=== PATIENT | female | born 1945 | race Caucasian/White ===

== ENCOUNTER 2017-02-19 09:09 | Day surgery (SDC) | payer OTHER ==
[2017-02-16 13:13] LABS: Basophils # (auto) 0 uL; Basophils % (auto) 0.5 % (0.0-2.0); CONDITION Y; Eosinophils # (auto) 0.1 uL; Eosinophils % (auto) 1.5 % (0.0-7.0); Hematocrit 40.9 % (36.0-46.0); Hemoglobin 13.6 g/dL (12.2-16.2); Lymphocytes # (auto) 1.3 uL; Lymphocytes % (auto) 17.2 % (10.0-50.0); Mean Corpuscular Hemoglobin 30.6 pg (28.0-32.0); Mean Corpuscular Hgb Conc. 33.2 g/dL (32.0-36.0); Mean Corpuscular Volume 92.2 fL (80.0-100.0); Mean Platelet Volume 9.7 fL (7.4-10.4); Monocytes # (auto) 0.6 uL; Monocytes % (auto) 7.8 % (0.0-12.0); Neutrophils # (auto) 5.5 uL; Platelet Count (auto) 266 10^3/uL (140-450); Red Cell Distribution Width 13.7 % (11.6-16.0); White Blood Cell 7.5 10^3/uL (4.4-10.8)
[2017-02-16 13:17] LABS: Partial Thromboplastin Time 27.1 sec (22.64-33.71); Prothrombin Time 10.9 sec (9.37-12.3)
[2017-02-16 13:37] LABS: Albumin 3.2 g/dL (3.4-5.0); BUN/Creatinine Ratio 22.4; Bilirubin, Total 0.6 mg/dL (0.2-1.0); Calcium 9.4 mg/dL (8.5-10.1); Potassium 4.4 mmol/L (3.5-5.1); Total Protein 8.2 g/dL (6.4-8.2)
[~2017-02-19] VITALS: Ht 157.5 cm; Wt 55.3 kg
[~2017-02-19 09:09] MED LIST: ALEN70TA55 PO; LEV50T PO; LOSA50TA6 PO; MET50T PO; OMEP20CA74 PO; OXYB15TA12 PO; SIMV10TA84 PO
[2017-02-19] MEDS ORDERED: ceFAZolin 1GM/50ML D5W 50 ML IV ONE (09:53)
[2017-02-19] MEDS ORDERED: MEPERIDINE HCL (50 MG/ML) 1 ML VIAL ONE (11:01)
[2017-02-19] MEDS ORDERED: MIDAZOLAM HCL 1MG/1ML-2 ML VIAL ONE (11:01)
[2017-02-19] MEDS ORDERED: fentaNYL CITRATE 100 MCG/2 ML VL ONE (11:01)
[2017-02-19] MEDS ORDERED: LIDOCAINE W/ EPINEPHRINE 1 % INJ 30ML ONE (11:13)
[2017-02-19] MEDS ORDERED: LIDOCAINE HCL (LOCAL ANESTH.) 0.5 % 50ML MDV IJ ONE (11:13)
[2017-02-19] MEDS ORDERED: BUPIVACAINE 0.25% INJ 50ML VIAL ONE (11:13)
[2017-02-19] MEDS ORDERED: CONJ ESTROGENS 0.625MG/GM VAG CRM 30GM PV ONE (11:15)
[2017-02-19] MEDS ORDERED: VASOPRESSIN 20 UNIT/ML ONE (11:15)
[2017-02-19] MEDS ORDERED: diphenhdrAMINE HCL 50 MG/1 ML VL ONE (12:11)
[2017-02-19] MEDS ORDERED: PROPOFOL 10 MG/ML 20 ML IV ONE (12:11)
[2017-02-19] MEDS ORDERED: DEXAMETHASONE SOD PHOS 10MG/1ML VIAL INJ ONE (12:11)
[2017-02-19] MEDS ORDERED: ceFAZolin 1GM VL ONE (12:36)
[2017-02-19] MEDS ORDERED: LABETALOL HCL 5 MG/ML 4ML SYRINGE IV PRN ×2 (13:00→14:15)
[2017-02-19] MEDS ORDERED: KETOROLAC TROMETH 30 MG/ML 1ML VIAL IV ONE (13:00)
[2017-02-19] MEDS ORDERED: MIDAZOLAM HCL 1MG/1ML-2 ML VIAL IV PRN (13:00)
[2017-02-19] MEDS ORDERED: HYDROmorphone HCL 2 MG/ML VL IV PRN ×3 (13:00→14:15)
[2017-02-19] MEDS ORDERED: ePHEDrine SULFATE 50 MG/ML AMP IV PRN (13:00)
[2017-02-19] MEDS ORDERED: ONDANSETRON HCL 4 MG/2 ML VIAL IV ONE ×2 (13:00→14:15)
[2017-02-19] MEDS ORDERED: MORPHINE SULF INJ 2 MG/ML SYRINGE 1ML IV PRN (13:00)
[2017-02-19] MEDS ORDERED: SUCCINYLCHOLINE CHLORIDE 20 MG/ML 10ML VIAL IV ONE (14:01)
[2017-02-19] MEDS ORDERED: hydrALAZINE HCL 20 MG/ML VL ONE (14:01)
[2017-02-19] MEDS ORDERED: hydrALAZINE HCL 20 MG/ML VL IV PRN (14:15)
[2017-02-19] MEDS ORDERED: METOCLOPRAMIDE HCL 5MG/ml INJ 2ml VIAL IV ONE (14:15)
[2017-02-19] MEDS ORDERED: NALOXONE HCL 0.4 MG/ML VIAL IV PRN (14:15)
[2017-02-19 15:00] VITALS: BP 126/74
== END 2017-02-19 15:10 | disposition home or self-care (01) ==
LOC: SUR 09:09
PROVIDERS: ATTEND Obstetrics & Gynecology
DX: N81.10 Cystocele, unspecified (principal); N81.6 Rectocele; N89.8 Other specified noninflammatory disorders of vagina; I11.9 Hypertensive heart disease without heart failure; E78.5 Hyperlipidemia, unspecified; M19.90 Unspecified osteoarthritis, unspecified site; E03.9 Hypothyroidism, unspecified; D64.9 Anemia, unspecified; R56.9 Unspecified convulsions; I25.10 Atherosclerotic heart disease of native coronary artery without angina pectoris
CPT/HCPCS: 36415; 57106; 57260; 57288; 80053; 85025; 85610; 85730; 88302; C1771; J0360; J0690; J1100; J1200; J2001; J2175; J2250; J2704; J3010; J3490; J0330

== ENCOUNTER 2020-07-05 09:12 | Inpatient (IN) | payer OTHER ==
[~2020-07-05] VITALS: Ht 162.6 cm; Wt 55.5 kg
[~2020-07-05 09:12] MED LIST changes: +ALEN1TAB32 PO; -ALEN70TA55 PO; +LOSA-69 PO; -LOSA50TA6 PO
[2020-07-05] MEDS ORDERED: LABETALOL HCL 5 MG/ML 4ML SYRINGE IV ONE (11:00)
[2020-07-05 11:04] LABS: Hemoglobin 14.4 g/dL (12.2-16.2); Mean Corpuscular Hgb Conc. 33.4 g/dL (32.0-36.0); Mean Corpuscular Volume 98.6 fL (80.0-100.0); Platelet Count (auto) 257 10^3/uL (140-450); Red Blood Cells 4.36 10^6/uL (4.0-5.20); White Blood Cell 5.8 10^3/uL (4.4-10.8)
[2020-07-05 11:25] LABS: Albumin 1.9 g/dL (3.4-5.0); Anion Gap 8 (5-15); Blood Urea Nitrogen 28 mg/dL (7-18); Calcium 8.9 mg/dL (8.5-10.1); Carbon Dioxide 23 mmol/L (21-32); Chloride 99 mmol/L (98-107); Glucose 100 mg/dL (74-106); Potassium 4.6 mmol/L (3.5-5.1); Sodium 130 mmol/L (136-145)
[2020-07-05 11:39] LABS: Alanine Aminotransferase 48 U/L (13-56); Alkaline Phosphatase 57 U/L (45-117); Aspartate Aminotransferase 88 U/L (15-37); BUN/Creatinine Ratio 23.9; Basophils % (manual) 0 (0.0-2.0); Blast Cells 0; Eosinophils % (manual) 0 (0-7); GFR African American 58 mL/min; GFR Non-African American 48 mL/min; Lactate Dehydrogenase 681 U/L (84-246); Myelocytes % 0; Promyelocytes % 0; Reactive Lymphocytes 0
[2020-07-05 11:44] LABS: CRP High Sensitivity > 19 mg/dL (< 0.3)
[2020-07-05 12:00] LABS: Band Neutrophils % (manual) 35; Lymphocytes % (manual) 7 (10.0-50.0); Metamyelocytes % 8; Monocytes % (manual) 8 (0-12)
[2020-07-05] MEDS ORDERED: ENOXAPARIN SOD 80 MG/0.8ML SYRINGE SC ONE (12:30)
[2020-07-05] MEDS ORDERED: FUROSEMIDE 40 MG/4 ML VIAL IV ONE (12:30)
[2020-07-05] MEDS ORDERED: ASPirin 81 mg TAB PO ONE (12:30)
[2020-07-05] MEDS ORDERED: ACETAMINOPHEN 650 MG RECT SUPP PR ONE (13:15)
[2020-07-05] MEDS ORDERED: REMDESIVIR PER PHARMACY 0 ML IV SCH (15:45)
[2020-07-05] MEDS ORDERED: cefTRIAXone 1GM/50ML D5W 50 ML IV ONE (15:45)
[2020-07-05] MEDS ORDERED: MORPHINE SULF INJ 2 MG/ML SYRINGE 1ML IV PRN (16:00)
[2020-07-05] MEDS ORDERED: NITROGLYCERIN 0.4 MG SL TAB SL PRN (16:00)
[2020-07-05] MEDS ORDERED: ENOXAPARIN SOD 40 MG/0.4 ML SYRINGE SC SCH (16:15)
[2020-07-05] MEDS ORDERED: BUDE1AER4 IN (16:41)
[2020-07-05] MEDS ORDERED: HYDR200T36 PO (16:41)
[2020-07-05] MEDS ORDERED: SIMV5TAB50 PO (16:41)
[2020-07-05] MEDS ORDERED: PRED-158 PO (16:41)
[2020-07-05] MEDS ORDERED: METH2.5T PO (16:41)
[2020-07-05] MEDS ORDERED: OMEP-260 PO (16:41)
[2020-07-05] MEDS: ATORVASTATIN 20 MG TAB PO SCH (22:00)
[2020-07-05] MEDS: ENOXAPARIN SOD 80 MG/0.8ML SYRINGE SC SCH (22:00)
[2020-07-06] MEDS ORDERED: AZITHROMYCIN 500MG/ 250ML 250 ML IV SCH (10:00)
[2020-07-06] MEDS: ENOXAPARIN SOD 80 MG/0.8ML SYRINGE SC SCH (10:00)
[2020-07-06] MEDS ORDERED: ENOXAPARIN SOD 40 MG/0.4 ML SYRINGE SC SCH (10:00)
[2020-07-06] MEDS: DexAMETHasone SOD PHOS 10MG/1ML VIAL INJ IV SCH (10:00)
[2020-07-06] MEDS ORDERED: cefTRIAXone 1GM/50ML D5W 50 ML IV SCH (10:00)
[2020-07-06] MEDS: ZINC SULFATE 220mg CAP or TAB PO SCH (11:40)
[2020-07-06] MEDS: ASCORBIC ACID 500 MG TAB PO SCH (11:40)
[2020-07-06] MEDS: ASPirin 81 mg TAB PO SCH (11:40)
[2020-07-06] MEDS: CHOLECALCIFEROL (VITD3) 2,000 UNIT CAP PO SCH (11:40)
[2020-07-06 13:25] LABS: Albumin 1.6 g/dL (3.4-5.0); Calcium 8.5 mg/dL (8.5-10.1); Potassium 4.7 mmol/L (3.5-5.1)
[2020-07-06 13:36] LABS: BUN/Creatinine Ratio 25.3; Bilirubin, Total 0.9 mg/dL (0.2-1.0); Total Protein 5.8 g/dL (6.4-8.2)
[2020-07-06] MEDS ORDERED: AMIODARONE HCL 150 MG in D5W 5% 100 ML IV ONE ×2 (13:45→14:30)
[2020-07-06] MEDS ORDERED: AMIODARONE 450mg/250ml AE 250 ML IV SCH ×3 (13:45→19:45)
[2020-07-06] MEDS ORDERED: REMDESIVIR 200 MG in NS 210ml LOADING DOSE ADULT IV ONE (18:00)
[2020-07-06] MEDS: ATORVASTATIN 20 MG TAB PO SCH (22:00)
[2020-07-06] MEDS: AMIODARONE 450mg/250ml AE 250 ML IV SCH (23:30)
[2020-07-07] MEDS: ENOXAPARIN SOD 80 MG/0.8ML SYRINGE SC SCH ×3 (00:25→22:29)
[2020-07-07 08:12] LABS: Urine Amorphous Crystal MOD /hpf (None Seen); Urine Bacteria FEW /hpf (None Seen); Urine Blood TRACE /uL (Negative); Urine Hyaline Cast FEW /lpf (0 - 2); Urine Mucus FEW (None Seen); Urine Specific Gravity 1.025 (1.001-1.035); Urine WBC 3 /hpf (0 - 5)
[2020-07-07] MEDS: ASPirin 81 mg TAB PO SCH (10:00)
[2020-07-07] MEDS: CHOLECALCIFEROL (VITD3) 2,000 UNIT CAP PO SCH (10:00)
[2020-07-07] MEDS: ZINC SULFATE 220mg CAP or TAB PO SCH (10:00)
[2020-07-07] MEDS: ASCORBIC ACID 500 MG TAB PO SCH (10:00)
[2020-07-07] MEDS: DexAMETHasone SOD PHOS 10MG/1ML VIAL INJ IV SCH (11:17)
[2020-07-07] MEDS: AMIODARONE 450mg/250ml AE 250 ML IV SCH (11:45)
[2020-07-07] MEDS: REMDESIVIR 100 MG in SODIUM CHL 0.9% 250 ML IV SCH (15:45)
[2020-07-07] MEDS: ATORVASTATIN 20 MG TAB PO SCH (22:29)
[2020-07-08] VITALS (7 sets, daily range): BP systolic 114–165; BP diastolic 64–94
[2020-07-08] MEDS: AMIODARONE 450mg/250ml AE 250 ML IV SCH ×2 (03:06→17:45)
[2020-07-08 07:18] LABS: Basophils # (auto) 0 10 ^3/uL (0-0.2); Basophils % (auto) 0.2 % (0.0-2.0); Eosinophils # (auto) 0 10 ^3/uL (0-0.8); Hematocrit 45.9 % (36.0-46.0); Hemoglobin 15.5 g/dL (12.2-16.2); Lymphocytes # (auto) 0.3 10 ^3/uL (0.4-5.4); Lymphocytes % (auto) 4.6 % (10.0-50.0); Mean Corpuscular Hemoglobin 31.8 pg (28.0-32.0); Mean Corpuscular Hgb Conc. 33.8 g/dL (32.0-36.0); Mean Corpuscular Volume 94.2 fL (80.0-100.0); Monocytes # (auto) 0.7 10 ^3/uL (0-1.3); Monocytes % (auto) 8.6 % (0.0-12.0); Neutrophils # (auto) 6.6 10 ^3/uL (1.6-8.6); Neutrophils % (auto) 86.6 % (37.0-80.0); Nucleated Red Blood Cells % 0.1 %; Platelet Count (auto) 125 10^3/uL (140-450); Red Blood Cells 4.88 10^6/uL (4.0-5.20); Red Cell Distribution Width 13.7 % (11.8-14.3); White Blood Cell 7.6 10^3/uL (4.4-10.8)
[2020-07-08 07:34] LABS: Magnesium 2.7 mg/dL (1.6-2.6); Potassium 3.3 mmol/L (3.5-5.1)
[2020-07-08] MEDS: DexAMETHasone SOD PHOS 10MG/1ML VIAL INJ IV SCH (09:29)
[2020-07-08] MEDS: ASCORBIC ACID 500 MG TAB PO SCH (09:29)
[2020-07-08] MEDS: ASPirin 81 mg TAB PO SCH (09:29)
[2020-07-08] MEDS: ZINC SULFATE 220mg CAP or TAB PO SCH (09:29)
[2020-07-08] MEDS: ENOXAPARIN SOD 80 MG/0.8ML SYRINGE SC SCH ×2 (09:30→21:47)
[2020-07-08] MEDS: CHOLECALCIFEROL (VITD3) 2,000 UNIT CAP PO SCH (09:30)
[2020-07-08] MEDS: REMDESIVIR 100 MG in SODIUM CHL 0.9% 250 ML IV SCH (15:54)
[2020-07-08] MEDS: AMIODARONE HCL 200 MG TAB PO SCH (18:11)
[2020-07-08] MEDS: ATORVASTATIN 20 MG TAB PO SCH (21:46)
[2020-07-09 05:00] VITALS: BP 149/78
[2020-07-09 07:26] LABS: Red Cell Distribution Width 15.3 % (11.8-14.3)
[2020-07-09 07:31] LABS: Hematocrit 40.3 % (36.0-46.0); Hemoglobin 13.3 g/dL (12.2-16.2); Mean Corpuscular Hemoglobin 32.2 pg (28.0-32.0); Mean Corpuscular Hgb Conc. 33.1 g/dL (32.0-36.0); Mean Corpuscular Volume 97.3 fL (80.0-100.0); Platelet Count (auto) 440 10^3/uL (140-450); Red Blood Cells 4.14 10^6/uL (4.0-5.20); White Blood Cell 26.2 10^3/uL (4.4-10.8)
[2020-07-09 07:39] LABS: Potassium 3.8 mmol/L (3.5-5.1)
[2020-07-09 07:40] LABS: Magnesium 2.7 mg/dL (1.6-2.6)
[2020-07-09 07:44] LABS: Basophils % (manual) 0 (0.0-2.0); Blast Cells 0; Eosinophils % (manual) 0 (0-7); Promyelocytes % 0; Reactive Lymphocytes 0
[2020-07-09 08:13] LABS: Band Neutrophils % (manual) 9; Lymphocytes % (manual) 1 (10.0-50.0); Metamyelocytes % 6; Monocytes % (manual) 1 (0-12); Myelocytes % 6
[2020-07-09 09:00] VITALS: BP 154/90
[2020-07-09] MEDS: CHOLECALCIFEROL (VITD3) 2,000 UNIT CAP PO SCH ×2 (10:00→15:14)
[2020-07-09 12:00] VITALS: BP 152/84
[2020-07-09] MEDS: AMIODARONE HCL 200 MG TAB PO SCH (15:14)
[2020-07-09] MEDS: ZINC SULFATE 220mg CAP or TAB PO SCH (15:14)
[2020-07-09] MEDS: ASCORBIC ACID 500 MG TAB PO SCH (15:14)
[2020-07-09] MEDS: ENOXAPARIN SOD 80 MG/0.8ML SYRINGE SC SCH ×2 (15:15→22:05)
[2020-07-09] MEDS: DexAMETHasone SOD PHOS 10MG/1ML VIAL INJ IV SCH (15:15)
[2020-07-09] MEDS: ASPirin 81 mg TAB PO SCH (15:15)
[2020-07-09] MEDS: REMDESIVIR 100 MG in SODIUM CHL 0.9% 250 ML IV SCH (16:25)
[2020-07-09 17:00] VITALS: BP 139/80
[2020-07-09 21:42] VITALS: BP 161/87
[2020-07-09] MEDS: ATORVASTATIN 20 MG TAB PO SCH (22:05)
[2020-07-10] VITALS (7 sets, daily range): BP systolic 122–162; BP diastolic 71–91
[2020-07-10 07:44] LABS: Hemoglobin 13.7 g/dL (12.2-16.2); Mean Corpuscular Hemoglobin 31.8 pg (28.0-32.0); Platelet Count (auto) 263 10^3/uL (140-450); Red Blood Cells 4.29 10^6/uL (4.0-5.20); Red Cell Distribution Width 17.6 % (11.8-14.3); White Blood Cell 26.6 10^3/uL (4.4-10.8)
[2020-07-10 07:49] LABS: Calcium 8.4 mg/dL (8.5-10.1); Hematocrit 41.3 % (36.0-46.0); Mean Corpuscular Hgb Conc. 33.4 g/dL (32.0-36.0)
[2020-07-10 07:50] LABS: Basophils % (manual) 0 (0.0-2.0); Blast Cells 0; Eosinophils % (manual) 0 (0-7); Promyelocytes % 0; Reactive Lymphocytes 0
[2020-07-10 07:52] LABS: BUN/Creatinine Ratio 50.5; Magnesium 2.9 mg/dL (1.6-2.6)
[2020-07-10] MEDS: DexAMETHasone SOD PHOS 10MG/1ML VIAL INJ IV SCH (09:15)
[2020-07-10] MEDS: ZINC SULFATE 220mg CAP or TAB PO SCH (09:16)
[2020-07-10] MEDS: CHOLECALCIFEROL (VITD3) 2,000 UNIT CAP PO SCH (09:16)
[2020-07-10] MEDS: ASPirin 81 mg TAB PO SCH (09:16)
[2020-07-10] MEDS: AMIODARONE HCL 200 MG TAB PO SCH (09:16)
[2020-07-10] MEDS: ASCORBIC ACID 500 MG TAB PO SCH (09:16)
[2020-07-10] MEDS: ENOXAPARIN SOD 80 MG/0.8ML SYRINGE SC SCH ×2 (09:17→22:00)
[2020-07-10 10:21] LABS: Band Neutrophils % (manual) 8; Lymphocytes % (manual) 7 (10.0-50.0); Metamyelocytes % 6; Monocytes % (manual) 2 (0-12); Myelocytes % 2
[2020-07-10] MEDS ORDERED: guaiFENesin-DM 100/10mg/5ml SYR PO PRN (12:15)
[2020-07-10] MEDS: REMDESIVIR 100 MG in SODIUM CHL 0.9% 250 ML IV SCH (15:33)
[2020-07-10] MEDS ORDERED: FUROSEMIDE 40 MG/4 ML VIAL IV ONE (16:45)
[2020-07-10 17:34] LABS: Hematocrit 33.6 % (36.0-46.0)
[2020-07-10 17:47] LABS: INR 1.33 (0.9-1.15)
[2020-07-10] MEDS ORDERED: PANTOPRAZOLE 40 MG/10 ML VIAL INJ IV ONE (22:15)
[2020-07-10] MEDS: ATORVASTATIN 20 MG TAB PO SCH (22:16)
[2020-07-10 23:18] LABS: Hematocrit 34.2 % (36.0-46.0); Hemoglobin 10.9 g/dL (12.2-16.2)
[2020-07-11 05:00] VITALS: BP 139/91
[2020-07-11 07:06] LABS: BUN/Creatinine Ratio 41.2; Calcium 7.8 mg/dL (8.5-10.1); Magnesium 2.2 mg/dL (1.6-2.6)
[2020-07-11 07:20] LABS: Hematocrit 30.3 % (36.0-46.0); Hemoglobin 9.5 g/dL (12.2-16.2); Mean Corpuscular Hemoglobin 31.8 pg (28.0-32.0); Mean Corpuscular Hgb Conc. 31.5 g/dL (32.0-36.0); Mean Corpuscular Volume 100.9 fL (80.0-100.0); Platelet Count (auto) 434 10^3/uL (140-450); Red Cell Distribution Width 16.1 % (11.8-14.3)
[2020-07-11] MEDS: ASPirin 81 mg TAB PO SCH (07:53)
[2020-07-11] MEDS: ENOXAPARIN SOD 80 MG/0.8ML SYRINGE SC SCH (07:53)
[2020-07-11 07:56] LABS: White Blood Cell 52.7 10^3/uL (4.4-10.8)
[2020-07-11 07:57] LABS: Basophils % (manual) 0 (0.0-2.0); Blast Cells 0; Eosinophils % (manual) 0 (0-7); Promyelocytes % 0; Reactive Lymphocytes 0
[2020-07-11 09:52] LABS: Band Neutrophils % (manual) 20; Lymphocytes % (manual) 2 (10.0-50.0); Metamyelocytes % 9; Monocytes % (manual) 1 (0-12); Myelocytes % 4
[2020-07-11 10:28] LABS: Hematocrit 32.2 % (36.0-46.0); Hemoglobin 10.5 g/dL (12.2-16.2); Mean Corpuscular Hemoglobin 32.8 pg (28.0-32.0); Mean Corpuscular Hgb Conc. 32.4 g/dL (32.0-36.0); Platelet Count (auto) 441 10^3/uL (140-450); Red Blood Cells 3.19 10^6/uL (4.0-5.20); Red Cell Distribution Width 15.8 % (11.8-14.3)
[2020-07-11] MEDS: DexAMETHasone SOD PHOS 10MG/1ML VIAL INJ IV SCH (10:57)
[2020-07-11] MEDS: PANTOPRAZOLE 40 MG/10 ML VIAL INJ IV SCH ×3 (10:57→22:45)
[2020-07-11] MEDS: ZINC SULFATE 220mg CAP or TAB PO SCH (10:58)
[2020-07-11] MEDS: ASCORBIC ACID 500 MG TAB PO SCH (10:58)
[2020-07-11] MEDS: CHOLECALCIFEROL (VITD3) 2,000 UNIT CAP PO SCH (10:59)
[2020-07-11] MEDS: AMIODARONE HCL 200 MG TAB PO SCH (11:01)
[2020-07-11 11:10] LABS: White Blood Cell 57.5 10^3/uL (4.4-10.8)
[2020-07-11 11:11] LABS: Basophils % (manual) 0 (0.0-2.0); Blast Cells 0; Eosinophils % (manual) 0 (0-7); Promyelocytes % 0; Reactive Lymphocytes 0
[2020-07-11 11:59] LABS: Band Neutrophils % (manual) 14; Lymphocytes % (manual) 2 (10.0-50.0); Metamyelocytes % 5; Monocytes % (manual) 5 (0-12); Myelocytes % 4
[2020-07-11 13:00] VITALS: BP 112/66
[2020-07-11 17:00] VITALS: BP 120/68
[2020-07-11] MEDS: ATORVASTATIN 20 MG TAB PO SCH (21:14)
[2020-07-11 22:25] LABS: Hematocrit 37.8 % (36.0-46.0); Hemoglobin 11.5 g/dL (12.2-16.2)
[2020-07-12 04:51] VITALS: BP 155/102
[2020-07-12] MEDS ORDERED: IOHEXOL 350 MG/ML 100ML IJ ONE (07:43)
[2020-07-12 09:00] VITALS: BP 129/77
[2020-07-12 09:55] LABS: Anion Gap 8 (5-15); BUN/Creatinine Ratio 32.6; Calcium 7.8 mg/dL (8.5-10.1); Carbon Dioxide 22 mmol/L (21-32); Chloride 106 mmol/L (98-107); GFR African American 19 mL/min; GFR Non-African American 16 mL/min; Glucose 154 mg/dL (74-106); Potassium 5.2 mmol/L (3.5-5.1); Sodium 136 mmol/L (136-145)
[2020-07-12 09:56] LABS: Magnesium 2.8 mg/dL (1.6-2.6)
[2020-07-12 09:57] LABS: Blood Urea Nitrogen 98 mg/dL (7-18)
[2020-07-12 10:03] LABS: Hematocrit 30.7 % (36.0-46.0); Hemoglobin 9.9 g/dL (12.2-16.2); Mean Corpuscular Hemoglobin 32.2 pg (28.0-32.0); Mean Corpuscular Hgb Conc. 32.2 g/dL (32.0-36.0); Platelet Count (auto) 502 10^3/uL (140-450); Red Blood Cells 3.07 10^6/uL (4.0-5.20); Red Cell Distribution Width 16.4 % (11.8-14.3)
[2020-07-12 10:04] LABS: White Blood Cell 50.1 10^3/uL (4.4-10.8)
[2020-07-12 10:05] LABS: Basophils % (manual) 0 (0.0-2.0); Blast Cells 0; Eosinophils % (manual) 0 (0-7); Monocytes % (manual) 0 (0-12); Promyelocytes % 0; Reactive Lymphocytes 0
[2020-07-12] MEDS ORDERED: LIDOCAINE 2%HCL (LOCAL ANESTH.) INJ 20ML MDV ONE (10:20)
[2020-07-12] MEDS: DexAMETHasone SOD PHOS 10MG/1ML VIAL INJ IV SCH (10:35)
[2020-07-12] MEDS: ZINC SULFATE 220mg CAP or TAB PO SCH (10:35)
[2020-07-12] MEDS: PANTOPRAZOLE 40 MG/10 ML VIAL INJ IV SCH ×2 (10:35→21:48)
[2020-07-12] MEDS: ASCORBIC ACID 500 MG TAB PO SCH (10:36)
[2020-07-12] MEDS: AMIODARONE HCL 200 MG TAB PO SCH (10:36)
[2020-07-12] MEDS: CHOLECALCIFEROL (VITD3) 2,000 UNIT CAP PO SCH (10:36)
[2020-07-12 11:40] LABS: Band Neutrophils % (manual) 16; Lymphocytes % (manual) 2 (10.0-50.0); Metamyelocytes % 5; Myelocytes % 4
[2020-07-12 13:00] VITALS: BP 121/82
[2020-07-12] MEDS ORDERED: fentaNYL CITRATE 100 MCG/2 ML VL ONE (14:25)
[2020-07-12] MEDS ORDERED: MIDAZOLAM HCL 1MG/1ML-2 ML VIAL ONE (14:26)
[2020-07-12 16:51] VITALS: BP 151/96
[2020-07-12] MEDS: SOD CHL 0.45% 1,000 ML IV SCH (19:36)
[2020-07-12] MEDS: ATORVASTATIN 20 MG TAB PO SCH (21:48)
[2020-07-12 22:00] VITALS: BP 156/88
[2020-07-13] MEDS: SOD CHL 0.45% 1,000 ML IV SCH ×2 (01:50→13:10)
[2020-07-13 05:00] VITALS: BP 144/81
[2020-07-13 09:00] VITALS: BP 140/97
[2020-07-13] MEDS ORDERED: FUROSEMIDE 100 MG/10ML VIAL IV ONE (09:15)
[2020-07-13] MEDS: DexAMETHasone SOD PHOS 10MG/1ML VIAL INJ IV SCH (10:40)
[2020-07-13] MEDS: PANTOPRAZOLE 40 MG/10 ML VIAL INJ IV SCH ×2 (10:40→21:37)
[2020-07-13] MEDS: ZINC SULFATE 220mg CAP or TAB PO SCH (10:41)
[2020-07-13] MEDS: CHOLECALCIFEROL (VITD3) 2,000 UNIT CAP PO SCH (10:41)
[2020-07-13] MEDS: ASCORBIC ACID 500 MG TAB PO SCH (10:41)
[2020-07-13] MEDS: AMIODARONE HCL 200 MG TAB PO SCH (10:41)
[2020-07-13 12:58] VITALS: BP 162/82
[2020-07-13] MEDS ORDERED: HEPARIN SODIUM (PORCINE) 5000 UNITS/ML 1ML VIAL IV ONE (14:00)
[2020-07-13] MEDS ORDERED: HEPARIN DRIP/D5W 100UNITS/ML 250 ML IV SCH (14:00)
[2020-07-13 16:22] LABS: Hemoglobin 8.7 g/dL (12.2-16.2)
[2020-07-13 16:28] LABS: Hematocrit 26.2 % (36.0-46.0); Mean Corpuscular Hemoglobin 33.3 pg (28.0-32.0); Mean Corpuscular Hgb Conc. 33.3 g/dL (32.0-36.0); Platelet Count (auto) 423 10^3/uL (140-450); Red Blood Cells 2.62 10^6/uL (4.0-5.20); Red Cell Distribution Width 16.6 % (11.8-14.3)
[2020-07-13 16:32] VITALS: BP 164/83
[2020-07-13 16:33] LABS: White Blood Cell 48.5 10^3/uL (4.4-10.8)
[2020-07-13 16:35] LABS: Basophils % (manual) 0 (0.0-2.0); Blast Cells 0; Eosinophils % (manual) 0 (0-7); Promyelocytes % 0; Reactive Lymphocytes 0
[2020-07-13 16:36] LABS: Calcium 6.7 mg/dL (8.5-10.1); Magnesium 2.8 mg/dL (1.6-2.6)
[2020-07-13 16:38] LABS: BUN/Creatinine Ratio 32.2
[2020-07-13 16:40] LABS: Potassium 5.9 mmol/L (3.5-5.1)
[2020-07-13 17:21] LABS: Band Neutrophils % (manual) 9; Lymphocytes % (manual) 1 (10.0-50.0); Metamyelocytes % 4; Monocytes % (manual) 1 (0-12); Myelocytes % 1
[2020-07-13] MEDS: SODIUM ZIRCONIUM CYCL 10 GM PAK PO SCH ×2 (18:53→23:13)
[2020-07-13] MEDS ORDERED: CALCIUM GLUC 4.65meq/50ml D5AE 50 ML IV ONE ×2 (19:15→21:45)
[2020-07-13] MEDS ORDERED: DEXTROSE (50%) 50ML SYRG IV ONE (19:15)
[2020-07-13] MEDS ORDERED: DEXTROSE (50%) 50ML SYRG IV PRN (19:15)
[2020-07-13] MEDS ORDERED: ALBUTEROL SULF 2.5 MG/0.5ML(0.5%) NEB SOLN NEB ONE (19:15)
[2020-07-13] MEDS ORDERED: InsuLIN REG 1unit/0.01ml Soln (100units/ml) IV ONE (19:15)
[2020-07-13 19:23] LABS: INR 1.04 (0.9-1.15); Partial Thromboplastin Time 26.6 sec (23.0-31.2)
[2020-07-13] MEDS: ATORVASTATIN 20 MG TAB PO SCH (21:37)
[2020-07-13] MEDS: LACTULOSE 20Gm/30ML SOLN PO SCH ×3 (21:39→23:58)
[2020-07-13 22:00] VITALS: BP 105/47
[2020-07-14] MEDS ORDERED: SODIUM BICARBONATE 8.4 % INJ 50ML VIAL IV ONE (00:31)
[2020-07-14] MEDS: SODIUM BICARBONATE 50ML VIAL 50 ML in SOD CHL 0.45% 1,000 ML IV SCH ×3 (01:12→22:21)
[2020-07-14 05:00] VITALS: BP 127/64
[2020-07-14 06:37] LABS: Hemoglobin 8.9 g/dL (12.2-16.2); Mean Corpuscular Hemoglobin 31.6 pg (28.0-32.0); Red Blood Cells 2.83 10^6/uL (4.0-5.20)
[2020-07-14 06:43] LABS: Hematocrit 28.4 % (36.0-46.0); Mean Corpuscular Hgb Conc. 31.5 g/dL (32.0-36.0); Mean Corpuscular Volume 100.5 fL (80.0-100.0); Platelet Count (auto) 451 10^3/uL (140-450); Red Cell Distribution Width 16.6 % (11.8-14.3)
[2020-07-14 06:54] LABS: White Blood Cell 48.6 10^3/uL (4.4-10.8)
[2020-07-14 06:55] LABS: Basophils % (manual) 0 (0.0-2.0); Blast Cells 0; Eosinophils % (manual) 0 (0-7); Metamyelocytes % 0; Myelocytes % 0; Promyelocytes % 0; Reactive Lymphocytes 0
[2020-07-14 07:13] LABS: Band Neutrophils % (manual) 1; Lymphocytes % (manual) 3 (10.0-50.0); Monocytes % (manual) 2 (0-12)
[2020-07-14 07:15] LABS: Calcium 7.1 mg/dL (8.5-10.1)
[2020-07-14 07:17] LABS: BUN/Creatinine Ratio 29.7
[2020-07-14 09:39] VITALS: BP 146/73
[2020-07-14] MEDS ORDERED: ENOXAPARIN SOD 30 MG/0.3 ML SYRINGE SC SCH (10:00)
[2020-07-14] MEDS: DexAMETHasone SOD PHOS 10MG/1ML VIAL INJ IV SCH (11:52)
[2020-07-14] MEDS: PANTOPRAZOLE 40 MG/10 ML VIAL INJ IV SCH ×2 (11:59→22:21)
[2020-07-14] MEDS: ZINC SULFATE 220mg CAP or TAB PO SCH (12:00)
[2020-07-14] MEDS: CHOLECALCIFEROL (VITD3) 2,000 UNIT CAP PO SCH (12:01)
[2020-07-14] MEDS: ASCORBIC ACID 500 MG TAB PO SCH (12:01)
[2020-07-14] MEDS: AMIODARONE HCL 200 MG TAB PO SCH (12:01)
[2020-07-14 12:34] VITALS: BP 150/78
[2020-07-14 17:30] VITALS: BP 157/75
[2020-07-14 21:58] VITALS: BP 175/73
[2020-07-14] MEDS: ATORVASTATIN 20 MG TAB PO SCH (22:22)
[2020-07-14] MEDS: hydrALAZINE HCL 20 MG/ML VL IV PRN (23:05)
[2020-07-15 05:00] VITALS: BP 160/80
[2020-07-15] MEDS: hydrALAZINE HCL 20 MG/ML VL IV PRN (06:58)
[2020-07-15 07:41] LABS: Potassium 3.8 mmol/L (3.5-5.1)
[2020-07-15 07:50] LABS: BUN/Creatinine Ratio 31.9; Calcium 7.1 mg/dL (8.5-10.1)
[2020-07-15 08:15] VITALS: BP 106/46
[2020-07-15] MEDS: ASCORBIC ACID 500 MG TAB PO SCH (09:59)
[2020-07-15] MEDS: AMIODARONE HCL 200 MG TAB PO SCH (09:59)
[2020-07-15] MEDS: CHOLECALCIFEROL (VITD3) 2,000 UNIT CAP PO SCH (09:59)
[2020-07-15] MEDS: PANTOPRAZOLE 40 MG/10 ML VIAL INJ IV SCH (10:00)
[2020-07-15] MEDS: ZINC SULFATE 220mg CAP or TAB PO SCH (10:00)
[2020-07-15] MEDS: DexAMETHasone SOD PHOS 10MG/1ML VIAL INJ IV SCH (10:00)
[2020-07-15 13:01] VITALS: BP 116/61
[2020-07-15 22:00] VITALS: BP 145/58
== END 2020-07-15 22:45 | disposition hospice, home (50) | DRG 871 ==
LOC: ER 09:12 → EDBD 09:12 → PACU ICU 09:13 → TELE 07-06 06:38 → TELE-EAST 07-08 00:20
PROVIDERS: ADMIT Internal Medicine; ATTEND Internal Medicine
PROC: XW033E5 Introduction of Remdesivir Anti-infective into Peripheral Vein, Percutaneous Approach, New Technology Group 5 (ICD-10-PCS; 2020-07-05)
PROC: 06H03DZ Insertion of Intraluminal Device into Inferior Vena Cava, Percutaneous Approach (ICD-10-PCS; principal; 2020-07-12)
PROC: B519YZZ Fluoroscopy of Inferior Vena Cava using Other Contrast (ICD-10-PCS; 2020-07-12)
PROC: 05HA33Z Insertion of Infusion Device into Left Brachial Vein, Percutaneous Approach (ICD-10-PCS; 2020-07-13)
PROC: B54NZZA Ultrasonography of Left Upper Extremity Veins, Guidance (ICD-10-PCS; 2020-07-13)
DX: A41.89 Other specified sepsis (principal); U07.1 COVID-19; J12.89 Other viral pneumonia; I21.4 Non-ST elevation (NSTEMI) myocardial infarction; J96.01 Acute respiratory failure with hypoxia; E43 Unspecified severe protein-calorie malnutrition; N17.0 Acute kidney failure with tubular necrosis; J98.11 Atelectasis; I50.30 Unspecified diastolic (congestive) heart failure; K92.2 Gastrointestinal hemorrhage, unspecified; I82.412 Acute embolism and thrombosis of left femoral vein; E66.9 Obesity, unspecified; G30.9 Alzheimer's disease, unspecified; Z51.5 Encounter for palliative care; Z66 Do not resuscitate; Z68.21 Body mass index [BMI] 21.0-21.9, adult; E78.5 Hyperlipidemia, unspecified; F02.80 Dementia in other diseases classified elsewhere, unspecified severity, without behavioral disturbance, psychotic disturbance, mood disturbance, and anxiety; I11.0 Hypertensive heart disease with heart failure; I48.91 Unspecified atrial fibrillation; Z90.710 Acquired absence of both cervix and uterus; Z90.3 Acquired absence of stomach [part of]; Z86.718 Personal history of other venous thrombosis and embolism; Z82.49 Family history of ischemic heart disease and other diseases of the circulatory system; Z82.3 Family history of stroke; Z79.01 Long term (current) use of anticoagulants; Z86.61 Personal history of infections of the central nervous system
CPT/HCPCS: 36415; 36600; 37191; 71045; 75825; 76000; 76942; 80048; 80053; 81001; 82270; 82728; 82805; 82962; 83615; 83735; 83880; 84484; 85007; 85014; 85018; 85025; 85027; 85379; 85610; 85730; 86141; 86850; 86900; 86901; 86920; 87040; 87077; 87186; 87426; 87804; 93306; 93970; 94644; 97110; 97530; C9113; G0378; J0610; J0696; J1100; J1815; J2250; J3490; J7060